=== PATIENT | female | born 2000 | race Caucasian/White ===

== ENCOUNTER 2019-02-09 21:49 | Emergency (ER) | payer BC ==
--- NOTE | 2019-02-09 22:06 | EDPHY ---
H & P Stated Complaint: SPILED ON ICE AND FELL HIT BACK OF HEAD, POSS LOC? Time Seen by Provider: 02/09/19 22:06 - Personal History LMP (Females 10-55): 22-28 Days Ago Current Tetanus/Diphtheria Vaccine: Yes Current Tetanus Diphtheria and Acellular Pertussis (TDAP): Yes - Medical/Surgical History Hx Asthma: No Hx Chronic Respiratory Disease: No Hx Diabetes: No Hx Cardiac Disease: No Hx Renal Disease: No Hx Cirrhosis: No Hx Alcoholism: No Hx HIV/AIDS: No Hx Splenectomy or Spleen Trauma: No Other PMH: HASIMOTOS - Social History Smoking Status: Never smoked Constitutional: Initial Vital Signs Temperature (C) 37.1 C 02/09/19 21:54 Heart Rate 95 02/09/19 21:54 Respiratory Rate 18 02/09/19 21:54 Blood Pressure 122/77 H 02/09/19 21:54 O2 Sat (%) 97 02/09/19 21:54 O2 Delivery Mode Room Air Allergies/Adverse Reactions: Latex, Natural Rubber Allergy (Verified 02/09/19 21:56) penicillin G Allergy (Verified 02/09/19 21:56) Home Medications: Medication Instructions Recorded Control Pills 02/09/19 Levothyroxine [Synthroid 75 mcg 75 mcg PO DAILY06 02/09/19 (*)] Medical Decision Making - Diagnostics Imaging Results: Imaging Impressions Head CT 02/09/19 22:12 Impression: 1. There is a right occipital scalp hematoma, and also evidence of a nondisplaced right occipital skull fracture which extends to the occipital condyle. 2. There is no intracranial acute abnormality identified on this unenhanced CT evaluation. If there is further clinical concern regarding the patient's symptoms, MR imaging is suggested, if not otherwise contraindicated. Findings were discussed with Ed Barnes MD at 22:41, on 02/09/2019. Imaging: Discussed imaging studies w/ net ui developer Radiologist, I viewed and interpreted images myself ED Course/Re-evaluation: CHIEF COMPLAINT: Head injury HISTORY OF PRESENT ILLNESS: The patient is a 19 y/o female complaining of a head injury after slipping on ice and hitting the back of her head. The patient believes she did lose consciousness. She was drinking alcohol today when she fell. Since the fall she has had a headache, but denies other neurological symptoms. No fever, body aches , lightheadedness, chest pain, heart palpitations, shortness of breath, cough, abdominal pain, urinary or bowel complaints, numbness, paresthesias. REVIEW OF SYSTEMS: A comprehensive 10 system review of systems is otherwise negative aside from elements mentioned in the history of present illness and medical decision making. PHYSICAL EXAM: HR, BP, O2 Sat, RR. Temp noted General Appearance: Photophobic, alert, well hydrated, appropriate, and non- toxic appearing. Head: Atraumatic without scalp tenderness or obvious injury Eyes: Pupils equal, round, reactive to light and accommodation, EOMI, no trauma , no injection. Ears: Clear bilaterally, no perforation, normal landmarks Nose: Atraumatic, no rhinorrhea, clear. Throat: There is no erythema or exudates, no lesions, normal tonsils, mucus membranes moist. Neck: Supple, 2+ carotid upstroke, nontender, no lymphadenopathy. Respiratory: No retractions, no distress, no wheezes, and no accessory muscle use. Lungs are clear to auscultation bilaterally. Cardiovascular: Regular rate and rhythm, no murmurs, rubs, or gallops. Bilateral carotid, radial, dorsalis pedis, and posterior tibial pulses intact. Good capillary refill all extremities. Gastrointestinal: Abdomen is soft, nontender, non-distended, no masses, no rebound, no guarding, no peritoneal signs. Musculoskeletal: Normal active ROM of all extremities, atraumatic. Neurological: Alert, appropriate, and interactive. The patient has normal DTRs and non-focal cranial nerves, motor, sensory, and cerebellar exam. Skin: No rashes, good turgor, no nodules on palpation. Past medical history: Omar's Past surgical history: Denies Family history: Denies Social history: Student at , friend at bedside, single DIAGNOSTICS/PROCEDURES/CRITICAL CARE TIME: Head CT: Left occipital scalp hematoma, and also evidence of a nondisplaced right occipital skull fracture which extends to the occipital condyle. DIFFERENTIAL DIAGNOSIS: The differential diagnosis for the patient's head injury included but was not limited to concussion, skull fracture, intra-parenchymal contusion, subarachnoid , subdural and epidural hematoma. MEDICAL DECISION MAKING: The patient is a 19 y/o female presenting with a head injury after slipping on ice and hitting the back of her head. She does report loss of consciousness and has been photophobic. As the patient did lose consciousness she does meet [place] [facility] and [facility] Head CT requirements. I have discussed the risks and benefits associated with having a head CT, which she is comfortable with. 2243: I spoke with Dr. Oneal, radiologist, regarding patient's head CT. The patient has a non-displaced left occipital skull fracture. 2245: Reassessed patient and discussed imaging findings. I have advised her to follow post-concussive precautions and follow up with Dr. Macias. Return precautions provided; patient is comfortable with this plan. Departure - Departure Disposition: Home, Routine, Self-Care Clinical Impression: Head injury Qualifiers: Encounter type: initial encounter Qualified Code(s): S09.90XA - Unspecified injury of head, initial encounter Concussion Qualifiers: Encounter type: initial encounter Loss of consciousness presence/duration: with LOC of 30 min or less Qualified Code(s): S06.0X1A - Concussion with loss of consciousness of 30 minutes or less, initial encounter Occipital fracture Qualifiers: Encounter type: initial encounter Fracture type: closed Occipital fracture type : other fracture of occiput Laterality: right Qualified Code(s): S02.11GA - Other fracture of occiput, right side, initial encounter for closed fracture Condition: Good Instructions: Skull Fracture (ED), Concussion (ED), Head Injury (ED) Additional Instructions: 1. Apply ice to sore areas and take 600mg ibuprofen every 6-8 hours or 650mg Tylenol every 4-6 hours for pain for the next few days. 2. Cognitive rest while symptoms are present. Avoid screen time including TV, phones, and computers until symptoms improve. 3. Physical rest while symptoms are present. Avoid any activities that could put you at further risk for a head injury until your symptoms resolve including contact sports, bicycling, etc. This may be 2 weeks or longer. 4. Follow up with Dr. Macias, head injury specialist, for unimproved symptoms over the next 10-14 days. It's not uncommon to experience fatigue, mood swings, and difficulty concentrating with concussions. 5. Return to the ED for severe headache, weakness or numbness on one side of your body, vision changes, or other worsening of condition. Referrals: Kim Macias MD [Medical Doctor] - As per Instructions Report Scribed for: Ed Barnes Report Scribed by: Evonne Childers Date of Report: 02/09/19 Time of Report: 22:10
[2019-02-09 23:05] VITALS: BP 118/68
== END 2019-02-09 23:05 | disposition home or self-care (01) ==
DX: S02.11GA Other fracture of occiput, right side, initial encounter for closed fracture (principal); S06.0X1A Concussion with loss of consciousness of 30 minutes or less, initial encounter; W01.10XA Fall on same level from slipping, tripping and stumbling with subsequent striking against unspecified object, initial encounter; Y92.9 Unspecified place or not applicable; Y93.9 Activity, unspecified; Y99.9 Unspecified external cause status